=== PATIENT | male | born 1980 | race Caucasian/White ===

== ENCOUNTER 2019-08-01 21:18 | Inpatient (IN) | payer OTHER ==
[~2019-08-01] VITALS: Ht 188 cm; Wt 127.3 kg
[2019-08-01 21:46] LABS: BASOPHILS 0.3 % (0-2); HEMATOCRIT 39.9 % (42.0-54.0); HEMOGLOBIN 13.5 g/dL (13.5-17.5); IMMATURE GRANULOCYTES 0.3 % (0-5); LYMPHOCYTES 43.5 % (15-50); MCH 31.3 pg (26.0-34.0); MCHC 33.8 g/dL (31.0-37.0); MCV 92.6 fL (80.0-100.0); MEAN PLATELET VOLUME 10.3 fL (7.4-10.4); MONOCYTES 9.6 % (2-11); NEUTROPHILS 44.3 % (40-80); PLATELET COUNT 288 10x3/uL (130-400); RBC 4.31 10x6/uL (4.20-6.10); RDW 13.1 % (11.5-14.5); WBC 14.3 10x3/uL (4.8-10.8)
[2019-08-01 21:50] VITALS: BP 114/77
[2019-08-01 21:54] LABS: INR 1.03 (0.85-1.17)
[2019-08-01 21:57] LABS: ANION GAP 17.7 mmol/L (8-16); CALCIUM 8.8 mg/dL (8.5-10.1); CARBON DIOXIDE 22.4 mmol/L (21.0-32.0); CREATININE - SERUM 1.3 mg/dL (0.6-1.3); POTASSIUM - SERUM 3.1 mmol/L (3.5-5.1)
[2019-08-01 21:59] VITALS: BP 152/104
[2019-08-01 22:10] LABS: ALBUMIN 3.6 g/dL (3.4-5.0); BILIRUBIN - TOTAL 0.21 mg/dL (0.2-1.3); PROTEIN - SERUM 7.4 g/dL (6.4-8.2)
--- NOTE | 2019-08-01 22:12 | NUR ---
LACERATION TO L ARM.
[2019-08-01 22:14] VITALS: BP 127/87
--- NOTE | 2019-08-01 22:59 | NUR ---
WOUND #1 L ELBOW APPX 5CM. TOTAL OF 9 SUTURES BY ENMANUEL MELCHOR NP
--- NOTE | 2019-08-01 22:59 | NUR ---
WOUND #2 LATERAL L ABDOMEN APPX 5CM, 7 SUTURES. ADMINISTERED BY ENMANUEL MELCHOR NP
--- NOTE | 2019-08-01 23:07 | NUR ---
32 FR CHEST TUBE AT 22 SONOMETERS OF SUCTION
[2019-08-01 23:10] VITALS: BP 127/86
--- NOTE | 2019-08-01 23:15 | NUR ---
ASSISTED DR GARCIA WITH CHEST TUBE INSERTION
[2019-08-01 23:19] VITALS: BP 150/107
--- NOTE | 2019-08-01 23:30 | NUR ---
WOUND #3 L FLANK. 2 CM LONG, 4 SUTURES APPLIED BY ENMANUEL MELCHOR NP
[2019-08-02 00:21] LABS: HEMATOCRIT 38.3 % (42.0-54.0)
--- NOTE | 2019-08-02 00:30 | NUR ---
PT BROTHER AT BEDSIDE. PT C/O PAIN, PT UPDATED ON NEXT TIME FOR SCHEDULED PAIN MED
[2019-08-02 02:11] VITALS: BP 157/81; BMI 36.0
[2019-08-02 02:56] VITALS: Ht 188 cm; Wt 127.3 kg
[2019-08-02 05:30] VITALS: BP 130/72
[2019-08-02 06:59] LABS: BASOPHILS 0.1 % (0-2); EOSINOPHILS 0.3 % (0-7); HEMATOCRIT 37.9 % (42.0-54.0); HEMOGLOBIN 12.7 g/dL (13.5-17.5); IMMATURE GRANULOCYTES 0.4 % (0-5); LYMPHOCYTES 13.7 % (15-50); MCH 30.9 pg (26.0-34.0); MCHC 33.5 g/dL (31.0-37.0); MCV 92.2 fL (80.0-100.0); MEAN PLATELET VOLUME 10.5 fL (7.4-10.4); NEUTROPHILS 78.5 % (40-80); PLATELET COUNT 258 10x3/uL (130-400); RBC 4.11 10x6/uL (4.20-6.10); RDW 13.2 % (11.5-14.5); WBC 15.9 10x3/uL (4.8-10.8)
[2019-08-02 07:06] LABS: CALCIUM 8.4 mg/dL (8.5-10.1); CHLORIDE - SERUM 104 mmol/L (98-107); GLUCOSE 108 mg/dL (74-106); SODIUM 141 mmol/L (136-145); eGFR NON AFRICAN AMERICAN 90 mL/min (90-120)
[2019-08-02 07:07] LABS: CALC OSMOLALITY 279 mosm/kg (275-300); CARBON DIOXIDE 28.9 mmol/L (21.0-32.0); POTASSIUM - SERUM 4.3 mmol/L (3.5-5.1); UREA NITROGEN 7 mg/dL (7-18)
--- NOTE | 2019-08-02 07:55 | NUR ---
PT LAYIN ON RIGHT SIDE. CHEST TUBE NOTED AND DRAINING PROPERLY. STITCHES NOTED TO LEFT SIDE. PT DENIES NEEDS OR PAIN AT THIS TIME. RR EVEN AND UNLABORED ON 2L NC. BED IN LOWEST POSITION. CALL LIGHT WITHIN REACH. WILL CONTINUE TO MONITOR.
[2019-08-02 08:40] VITALS: BP 149/94
--- NOTE | 2019-08-02 12:01 | NUR ---
SISTER OF PT INSISTED ON CHANGING DRESSINGS TO RIGHT HAND. DRESSINGS CHANGED, CDI.
--- NOTE | 2019-08-02 13:19 | NUR ---
PT STATES PAIN IS BETTER AFTER MORPHINE GIVEN PER ORDER. DISCUSSED BRIEFLY POC WITH PT AND SISTER, VERBALIZED UNDERSTANDING AND NO FURTHER QUESTIONS AT THIS TIME. CALL LIGHT WITHIN REACH. BED IN LOWEST POSITION. CALL LIGHT WITHIN REACH. WILL CONTINUE TO MONITOR.
[2019-08-02 13:45] VITALS: BP 129/78
--- NOTE | 2019-08-02 15:05 | NUR ---
PT CHEST TUBE LEAKING @ SITE. DR. NICHOLE MADE AWARE OF SITUATION. STATED TO CHANGE AND REINFORCE DRESSING. DRESSING WAS CHANGED AND REINFORCED WITH DRAINAGE SPONGE AND ABD PAD WITH SURGICAL TAPE. PT CLEANED. WILL CONTINUE TO MONITOR.
[2019-08-02 16:56] VITALS: BP 132/85
--- NOTE | 2019-08-02 17:10 | NUR ---
AT FIRST PT STATED HE WAS IN PAIN, THEN PT STATED PAIN WAS RELIEVED WHEN HE REPOSITIONED. DENIES FURTHER NEEDS AT THIS TIME. RR EVEN AND UNLABORED. CALL LLIGHT WITHIN REACH. BED IN LOWEST POSITION. WILL CONTINUE TO MONITOR.
--- NOTE | 2019-08-02 17:29 | NUR ---
I have reviewed this patient and I concur with the Shift Assessment completed by the Licensed Practical Nurse today this shift.
[2019-08-02 20:58] VITALS: BP 143/77
--- NOTE | 2019-08-02 21:25 | NUR ---
LYING ON RT SIDE IN BED. C/O PAIN IN BACK 8. MEDICATED WITH MORPHINE AND ZOFRAN AT THIS TIME. O2 @ 2L/NC. DSRG TO LT CHEST TUBE IS C/D/I. SUTURES NOTED TO LT SIDE AND ABD STAB WOUNDS. LT CHEST TUBE IS TO WALL SUCTION WITH BLOODY FLUID IN CHAMBER. RESP EVEN AND NONLABORED. NO DISTRESS. NS @ 50 MLHR INFUSING IN RT HAND. SALINE LOCK NOTED TO RT FOREARM. SR ELEVATED X2. CL IN REACH.
--- NOTE | 2019-08-02 22:45 | NUR ---
VICE PRESIDENT OF CONSULTING SERVICES TOOK NEW URINAL AND URINE SPECIMEN CUP TO PT AND EXPLAINED THAT URINE SPECIMEN IS NEEDED AND HE VERBALIZED UNDERSTANDING.
[2019-08-03] VITALS: BP 135/83
--- NOTE | 2019-08-03 02:17 | NUR ---
HAS SLEPT MOST OF THE SHIFT SO FAR. NO DISTRESS. AWAKENS EASILY. CL IN REACH.
--- NOTE | 2019-08-03 02:44 | NUR ---
MEDICATED WITH MORPHINE AND ZOFRAN FOR C/O BACK PAIN RATING 8. CL IN REACH.
[2019-08-03 04:00] VITALS: BP 127/86
--- NOTE | 2019-08-03 04:50 | NUR ---
CALCULATING I/O AT THIS TIME. NO URINE NOTED IN URINAL. ASKED PT IF HE HAS VOIDED DURING THE NIGHT AND HE STATES, "YES, IN THAT THING OVER THERE" AND POINTS TO EMPTY URINAL. STATES,"A BLACK AMIE BROUGHT A NEW ONE IN HERE AND EMPTIED THE OLD ONE THAT WAS FULL." SPOKE WITH ALEXANDER SOW WHO STATES THAT THE URINAL THAT HE THREW AWAY WAS EMPTY AND THAT HE HASNT EMPTIED ANY URINE ALL NIGHT. STAFF THEN ASKED PT IF HE WAS HAVING DIFF URINATING AND HE SAID, "NO". EXPLAINED THAT STAFF COULD INSERT A FALCON IF HE WAS HAVING DIFF. STAFF SUSPICIOUS THAT PT IS HOLDING URINE OR DISPOSING OF IT DUE TO UDS THAT IS REQUESTED. PT HAS CHEST TUBE SYSTEM AND HAS NOT BEEN OOB ALL NIGHT.
[2019-08-03 06:07] LABS: BASOPHILS 0.2 % (0-2); EOSINOPHILS 1.6 % (0-7); HEMATOCRIT 35.7 % (42.0-54.0); HEMOGLOBIN 11.9 g/dL (13.5-17.5); IMMATURE GRANULOCYTES 0.2 % (0-5); LYMPHOCYTES 24.3 % (15-50); MCH 30.7 pg (26.0-34.0); MCHC 33.3 g/dL (31.0-37.0); MEAN PLATELET VOLUME 10.9 fL (7.4-10.4); MONOCYTES 9.7 % (2-11); PLATELET COUNT 224 10x3/uL (130-400); RBC 3.88 10x6/uL (4.20-6.10); RDW 13.2 % (11.5-14.5)
[2019-08-03 06:27] LABS: WBC 9.3 10x3/uL (4.8-10.8)
[2019-08-03 06:36] LABS: CALC OSMOLALITY 277 mosm/kg (275-300); CALCIUM 8.1 mg/dL (8.5-10.1); CHLORIDE - SERUM 105 mmol/L (98-107); CREATININE - SERUM 0.9 mg/dL (0.6-1.3); GLUCOSE 91 mg/dL (74-106); MAGNESIUM - SERUM 2.1 mg/dL (1.8-2.4); SODIUM 140 mmol/L (136-145); eGFR NON AFRICAN AMERICAN > 90 mL/min (90-120)
[2019-08-03 06:37] LABS: UREA NITROGEN 11 mg/dL (7-18)
[2019-08-03 10:12] VITALS: BP 141/95
[2019-08-03 12:23] LABS: UDS - AMPHET NEGATIVE QUAL (NEGATIVE); UDS - BARB NEGATIVE QUAL (NEGATIVE); UDS - BENZO NEGATIVE QUAL (NEGATIVE); UDS - COCAINE NEGATIVE QUAL (NEGATIVE); UDS - OPIATE POSITIVE QUAL (NEGATIVE); UDS - PCP NEGATIVE QUAL (NEGATIVE); UDS - THC POSITIVE QUAL (NEGATIVE)
[2019-08-03 12:35] LABS: APPEARANCE CLEAR (CLEAR); COLOR YELLOW (YELLOW); NITRITE NEGATIVE (NEGATIVE); PROTEIN NEGATIVE (NEGATIVE)
[2019-08-03 12:36] LABS: AMORPHOUS SEDIMENT >1+ /lpf (NONE SEEN); BACTERIA FEW /hpf (NEGATIVE); BILIRUBIN NEGATIVE (NEGATIVE); EPITHELIAL CELLS OCC /hpf (0-5); GLUCOSE NEGATIVE (NEGATIVE); GRANULAR CAST RARE /lpf (NONE SEEN); KETONE NEGATIVE (NEGATIVE); MUCUS <1+ /lpf (NONE SEEN); RED CELLS - URINE NONE SEEN /hpf (0-5); WHITE CELLS - URINE OCC /hpf (NEGATIVE)
[2019-08-03 12:47] VITALS: BP 143/91
[2019-08-03 17:31] VITALS: BP 139/97
--- NOTE | 2019-08-03 19:04 | NUR ---
REMAINS WITHOUT DISTRESS.CHEST TUBE CLAMPED TODAY,110 CC OF BLOODY DRAINAGE FOR SHIFT.CONT PLAN OF CARE
--- NOTE | 2019-08-03 19:35 | NUR ---
LYING ON RT SIDE IN BED. ALERT AND ORIENTED X4. EATING SNACK. RESP SHALLOW, NONLABORED. LT CHEST TUBE NOTED TO WATER SEAL WITH BLOODY DRAINAGE IN CHAMBER. MULTIPLE WOUNDS TO LT CHEST,BACK,ABD WITH SUTURES NOTED. REPORTS PAIN IN BACK 3. DENIES NEED FOR PAIN MED AT THIS TIME. SCDS IN USE BILAT. SUTURES NOTED TO LT ELBOW. NOT WEARING O2 @ 1L/NC. SR ELEVATED X2. CL IN REACH.
[2019-08-03 20:00] VITALS: BP 128/84
--- NOTE | 2019-08-03 20:55 | NUR ---
MEDICATED WITH NORCO FOR C/O BACK PAIN PER REQUEST. CL IN REACH.
--- NOTE | 2019-08-04 01:33 | NUR ---
HAS RESTED WELL SO FAR TONIGHT. CL IN REACH. NO DISTRESS.
[2019-08-04 04:00] VITALS: BP 141/61
[2019-08-04 08:49] VITALS: BP 138/94
--- NOTE | 2019-08-04 08:55 | NUR ---
PATIENT RECIEVED FROM PREVIOUS NURSE RESTING IN BED WITH PAIN REPORTED TO LEFT SIDE AND BACK. CHEST TUBE LEFT SIDE, WATERSEAL. PAIN TOLERABLE WITH NORCO AND MORPHINE. 5 STAB WOUNDS TO LEFT SIDE AND BACK ALSO LEFT ELBOW SECURED WITH SUTURES. NO S/S/ OF INFECTION. CL IN REACH
[2019-08-04] MEDS ORDERED: KEFLEX500 MG PO (11:38)
[2019-08-04] MEDS ORDERED: HYDROCODON-ACE1 EA10 PO (11:38)
--- NOTE | 2019-08-04 12:59 | MORECARE ---
CASE MANAGEMENT DISCHARGE SUMMARY PATIENT: ANGELINA CARRANZA UNIT: [id number] ADM DATE: 08/02/19 AGE: 38 : [birth year] SEX: M ROOM/BED: D.2212 AUTHOR: ANJEL,DOC PHYSICIAN: REFERRING PHYSICIAN: SILAS NICHOLE MD DATE OF SERVICE: 08/04/19 Discharge Plan Patient Name: ANGELINA CARRANZA Facility: [facility]:[place] : 1980 Planned Disposition: Home Anticipated Discharge Date: 08/04/19 Discharge Date: Expected LOS: 2 Initial Reviewer: [email or web address] Initial Review Date: 08/04/2019 Generated: 08/04/19 1:58 pm Comments DCP- Discharge Planning Updated by [email or web address]: Adelina Garcia on 08/04/19 11:[address] Patient Name: ANGELINA CARRANZA Admission Status: ER Accout number: [id number] Admission Date: 08-02-2019 : 1980 Admission Diagnosis: Attending: SILAS NICHOLE Current LOS: 2 Anticipated DC Date: 08-04-2019 Planned Disposition: Home Primary Insurance: [employer] Discharge Planning Comments: CM met with patient to complete initial dc planning assessment. CM educated patient on the CM role and verbal consent given by patient to complete assessment. Patient lives at home with his brother. At discharge patient plans to return and feels this is a safe discharge. CM discussed availability of home health, rehab services, and medical equipment. Patient denied known discharge needs at this time. States he is registered at the [facility] in [place], so I cannot call the [facility]. States [facility] [place] [facility]. CM will continue to follow and will assist as needed with dc plans/needs. Global Engineering Manager: Adelina Garcia DCPIA - Discharge Planning Initial Assessment Updated by [email or web address]: Adelina Garcia on 08/04/19 12:55 pm * Is the patient Alert and Oriented? Yes * How many steps to enter\exit or inside your home? 2/0 * PCP None * Pharmacy [place] clinic * Preadmission Environment Home with Family * ADLs Independent * Equipment None * List name and contact numbers for known caregivers / representatives who currently or will assist patient after discharge: Beau Ramez - Brother - [phone] * Verbal permission to speak to the caregivers and representatives has been obtained from the patient. Yes * Community resources currently utilized None * Additional services required to return to the preadmission environment? No * Can the patient safely return to the preadmission environment? Yes * Has this patient been hospitalized within the prior 30 days at any hospital? No Patient Name: ANGELINA CARRANZA Page [id number] at 1259 All edits/amendments must be made on the electronic document DICTATION DATE: 08/04/191257 AUTOMOTIVE UPHOLSTERER: CECELIA 08/04/191257 RPT#: [id number] DC DATE: STATUS: ADM IN [facility] [address] [place] [address] END OF REPORT
--- NOTE | 2019-08-04 13:45 | NUR ---
CHEST TUBE REMOVED PER DR NICHOLE. DRESSING C/D/I, IV REMOVED FROM LEFT AC AND LEFT FOREARM WITH NO REDNESS OR EDEMA AT SITE. DISCHARGE INSTRUCTIONS GIVEN WITH PATIENT VOICING UNDERSTANDING. TEACHING PROVIDED ON MEDICATIONS, S/S OF INFECTION TO MONITOR FOR AND SYMNPTOMS TO REPORT TO PHYSICIAN. PATIENT TAKEN BY WHEELCHAIR TO PRIVATE CAR
--- NOTE | 2019-08-05 09:59 | MORECARE ---
CASE MANAGEMENT DISCHARGE SUMMARY PATIENT: ANGELINA CARRANZA UNIT: [id number] ADM DATE: 08/02/19 AGE: 38 : 84 SEX: M ROOM/BED: D.2212 AUTHOR: ANJEL,DOC PHYSICIAN: REFERRING PHYSICIAN: SILAS NICHOLE MD DATE OF SERVICE: 08/05/19 Discharge Plan Patient Name: ANGELINA CARRANZA Facility: [facility]:[place] : 1980 Planned Disposition: Home Anticipated Discharge Date: 08/04/19 Discharge Date: 08/04/2019 Expected LOS: 2 Initial Reviewer: [email or web address] Initial Review Date: 08/04/2019 Generated: 08/05/19 10:59 am DCP- Discharge Planning Updated by [email or web address]: Adelina Garcia on 08/04/19 11:[address] Patient Name: ANGELINA CARRANZA Admission Status: ER Accout number: [id number] Admission Date: 08-02-2019 : 1980 Admission Diagnosis: Attending: SILAS NICHOLE Current LOS: 2 Anticipated DC Date: 08-04-2019 Planned Disposition: Home Primary Insurance: [employer] Discharge Planning Comments: CM met with patient to complete initial dc planning assessment. CM educated patient on the CM role and verbal consent given by patient to complete assessment. Patient lives at home with his brother. At discharge patient plans to return and feels this is a safe discharge. CM discussed availability of home health, rehab services, and medical equipment. Patient denied known discharge needs at this time. [facility] is [facility] [place], so I cannot call the [facility]. States he is trying to get the number to the [facility] in [place] for me to call. CM will continue to follow and will assist as needed with dc plans/needs. Exhauster Engineer: Adelina Garcia DCPIA - Discharge Planning Initial Assessment Updated by [email or web address]: Adelina Garcia on 08/04/19 12:55 pm * Is the patient Alert and Oriented? Yes * How many steps to enter\exit or inside your home? 2/0 * PCP None * [place] [facility] * Preadmission Environment Home with Family * ADLs Independent * Equipment None * List name and contact numbers for known caregivers / representatives who currently or will assist patient after discharge: Kelvin Leal - [phone] * Verbal permission to speak to the caregivers and representatives has been obtained from the patient. Yes * Community resources currently utilized None * Additional services required to return to the preadmission environment? No * Can the patient safely return to the preadmission environment? Yes * Has this patient been hospitalized within the prior 30 days at any hospital? No Last DP export: 08/04/19 11:59 am Patient Name: ANGELINA CARRANZA Page [id number] at 0959 All edits/amendments must be made on the electronic document DICTATION DATE: 08/05/19958 [employer] CONSULTANT: CECELIA 08/05/19958 RPT#: [id number] DC DATE:08/04/19 STATUS: DIS IN [facility] [address] [place] [address] END OF REPORT
== END 2019-08-04 13:48 | disposition home or self-care (01) | DRG 201 ==
LOC: D.ER 21:18 → D.MS 08-02 00:15
PROVIDERS: Family Medicine; ADMIT Surgery; ATTEND Surgery
PROC: 0W9B30Z Drainage of Left Pleural Cavity with Drainage Device, Percutaneous Approach (ICD-10-PCS; principal; 2019-08-01)
PROC: 0HQEXZZ Repair Left Lower Arm Skin, External Approach (ICD-10-PCS; 2019-08-01)
PROC: 0HQ6XZZ Repair Back Skin, External Approach (ICD-10-PCS; 2019-08-01)
PROC: 0HQ7XZZ Repair Abdomen Skin, External Approach (ICD-10-PCS; 2019-08-01)
PROC: 0HQ6XZZ Repair Back Skin, External Approach (ICD-10-PCS; 2019-08-01)
PROC: 0HQ6XZZ Repair Back Skin, External Approach (ICD-10-PCS; 2019-08-01)
PROC: 0HQ6XZZ Repair Back Skin, External Approach (ICD-10-PCS; 2019-08-01)
DX: S27.2XXA Traumatic hemopneumothorax, initial encounter (principal); S41.112A Laceration without foreign body of left upper arm, initial encounter; S21.212A Laceration without foreign body of left back wall of thorax without penetration into thoracic cavity, initial encounter; S31.114A Laceration without foreign body of abdominal wall, left lower quadrant without penetration into peritoneal cavity, initial encounter; X99.9XXA Assault by unspecified sharp object, initial encounter